=== PATIENT | male | born 1980 | race Caucasian/White ===

== ENCOUNTER 2017-11-27 13:00 | Emergency (ER) | payer SELFPAY ==
[~2017-11-27] VITALS: Ht 182.9 cm; Wt 95.3 kg
[2017-11-27 13:16] VITALS: BP 148/79
[2017-11-27] MEDS ORDERED: AZITHROMYCIN 250 MG TABLET PO STA (13:34)
[2017-11-27 13:48] LABS: APPEARANCE,URINE Cloudy (CLEAR); BILIRUBIN,URINE Negative (NEGATIVE); BLOOD, URINE Trace-intact Ery/uL (NEGATIVE); COLOR,URINE Yellow (YELLOW); KETONES,URINE Negative (NEGATIVE); LEUKOCYTE ESTERASE ,URINE Moderate (NEGATIVE); NITRITE, URINE Negative (NEGATIVE); PH,URINE 7.5 (5.0-8.0); PROTEIN,URINE Trace mg/dl (NEGATIVE); UGLUCOSE Negative (NEGATIVE); UROBILINOGEN,URINE 0.2 EU/dL (0.2)
[2017-11-27] MEDS ORDERED: CEFTRIAXONE 500 MG VIAL ONE (13:51)
[2017-11-27] MEDS ORDERED: AZITHROMYCIN 250 MG TABLET ONE (13:51)
[2017-11-27] MEDS ORDERED: CEFTRIAXONE 500 MG VIAL IM ONE (14:00)
[2017-11-27] MEDS ORDERED: LIDOCAINE 1% INJ 50 ML MDV IJ ONE (14:00)
[2017-11-27 14:05] LABS: WBC,URINE 51-80 /HPF (0-3)
[2017-11-27 14:07] LABS: BACTERIA,URINE Rare /HPF (None Seen); SQUAMOUS EPITHELIAL CELL,UR Rare /HPF (None Seen)
== END 2017-11-27 14:19 | disposition home or self-care (01) ==
LOC: ER 13:02
DX: A64 Unspecified sexually transmitted disease (principal)
CPT/HCPCS: 81001; 87086; 87491; 87591; 96372; 99284; A4606; J0696; Z7610; 81000-TC